=== PATIENT | female | born 1980 | race Caucasian/White ===

== ENCOUNTER 2021-06-17 19:57 | Emergency (ER) | payer MEDICAID ==
[~2021-06-17] VITALS: Ht 160 cm; Wt 90.7 kg
[2021-06-17 20:04] VITALS: BP_SYST 125
--- NOTE | 2021-06-17 20:04 | NUR ---
Patient triaged and placed in waiting room. VSS and patient appears in no acute distress at this time. Accompanied by FAM MEMBER, awaiting available bed, and MD notified of need for MSE.
[2021-06-17 20:26] LABS: BASOPHILS % (AUTO) 0.4 % (0.0-2.0); EOSINOPHILS # (AUTO) 0.2 K/uL (0.0-0.4); HEMATOCRIT 32.7 % (36-48); HEMOGLOBIN 11.1 g/dL (12.0-16.0); LYMPHOCYTES # (AUTO) 1.6 K/uL (1.0-5.5); LYMPHOCYTES % (AUTO) 25.5 % (20.5-51.5); MEAN CORPUSCULAR HEMOGLOBIN 31 pg (27-31); MEAN CORPUSCULAR HGB CONC 34 % (32-36); MEAN CORPUSCULAR VOLUME 90 fL (79.0-98.0); MONOCYTES # (AUTO) 0.6 K/uL (0.0-1.0); MONOCYTES % (AUTO) 9.4 % (1.7-9.3); NEUTROPHILS # (AUTO) 3.7 K/uL (1.8-7.7); NEUTROPHILS % (AUTO) 60.7 % (40.0-70.0); PLATELET COUNT (AUTO) 206 K/uL (130-430); RED BLOOD CELL COUNT(AUTO) 3.63 MIL/uL (4.2-6.2); RED CELL DISTRIBUTION WIDTH 13.3 % (9.0-15.0); WHITE BLOOD COUNT (AUTO) 6.1 K/uL (4.8-10.8)
[2021-06-17 20:44] LABS: CALCIUM 8.9 mg/dL (8.4-11.0); CREATININE 1.04 mg/dL (0.55-1.30); POTASSIUM 3.5 mmol/L (3.5-5.1)
[2021-06-17 20:54] LABS: ALBUMIN 3.1 g/dL (3.4-4.8); TOTAL BILIRUBIN 0.2 mg/dL (0.0-1.0)
[2021-06-17 21:22] LABS: BILIRUBIN,URINE NEGATIVE (NEGATIVE); BLOOD, URINE 2+ (NEGATIVE); CLARITY/URINE SL CLOUDY (CLEAR); COLOR,URINE YELLOW (YELLOW); GLUCOSE,URINE NEGATIVE (NEGATIVE); KETONES,URINE TRACE (NEGATIVE); LEUKOCYTE ESTERASE ,URINE 2+ (NEGATIVE); NITRITE, URINE POSITIVE (NEGATIVE); PH,URINE 6.5 (5.0-8.0); PROTEIN URINE 1+ (NEGATIVE); UROBILINOGEN,URINE 0.2 (0.2-1.0)
[2021-06-17 21:37] LABS: BACTERIA,URINE MODERATE /HPF (None Seen); CALCIUM OXALATE CRYSTALS,UR None Seen /HPF (None Seen); CALCIUM PHOSPHATE CRYSTALS,UR None Seen /HPF (None Seen); COARSE GRANULAR CASTS,URINE None Seen /LPF (None Seen); FINE GRANULAR CASTS,URINE None Seen /LPF (None Seen); HYALINE CASTS, URINE None Seen /LPF (None Seen); MUCUS,URINE None Seen /LPF (None Seen); OTHER CASTS, URINE None Seen /LPF (None Seen); OTHER CRYSTALS,URINE None Seen /HPF (None Seen); RBC,URINE 0-3 /HPF (0-3); TRICHOMONAS,URINE None Seen /HPF (None Seen); TRIPLE PHOSPHATE CRYSTAL,UR None Seen /HPF (None Seen); URIC ACID CRYSTALS,URINE None Seen /HPF (None Seen); URINE AMORPHOUS PHOSPHATES None Seen /HPF (None Seen); URINE AMORPHOUS URATE None Seen /HPF (None Seen); WAXY CASTS,URINE None Seen /LPF (None Seen); WBC,URINE >100 /HPF (0-3); YEAST,URINE None Seen /HPF (None Seen)
--- NOTE | 2021-06-17 21:58 | NUR ---
DAYANA Weathers examining patient.
[2021-06-17] MEDS ORDERED: MAG HYDROX/AL HYDROX/SIMETH 30 ML, DICYCLOMINE HCL 20 MG, LIDOCAINE VISCOUS 2% 15ML (PO... PO ONE ×3 (22:15)
--- NOTE | 2021-06-17 22:35 | NUR ---
Seen and examined by Dr. Gamboa
[2021-06-17] MEDS ORDERED: CIPR500T5 PO (22:56)
[2021-06-17] MEDS ORDERED: ONDA4TAB5 PO (22:56)
[2021-06-17] MEDS ORDERED: HYDR-3917 PO (22:56)
[2021-06-17] MEDS ORDERED: KETOROLAC TROMETHAMINE 60 MG/2 ML VIAL IM ONE ×2 (23:42→23:45)
--- NOTE | 2021-06-17 23:45 | NUR ---
Medications given as ordered, haelth teaching provided and verbalized understanding. all medication entered manually, no available scanner in waiting area
[2021-06-17 23:47] VITALS: BP_SYST 125
--- NOTE | 2021-06-17 23:47 | NUR ---
Patient given written and verbal discharge instructions and verbalizes understanding. ER MD discussed with patient the results and treatment provided. Patient in stable condition. ID arm band removed. Rx of norco, zofran, ciprofloxacin given. Patient educated on pain management and to follow up with PMD. Pain Scale 3/10. Opportunity for questions provided and answered. Medication side effect fact sheet provided.
== END 2021-06-17 23:47 | disposition home or self-care (01) ==
LOC: SED 19:57
DX: N39.0 Urinary tract infection, site not specified (principal); R11.2 Nausea with vomiting, unspecified; K21.9 Gastro-esophageal reflux disease without esophagitis
CPT/HCPCS: 36415; 80053; 81000; 81025; 83690; 85025; 87086; 96372; 99283; J1885; J2001

== ENCOUNTER 2021-10-10 15:05 | Emergency (ER) | payer MEDICAID ==
[~2021-10-10] VITALS: Ht 160 cm; Wt 89.8 kg
[~2021-10-10 15:05] MED LIST: CIPR500T5 PO; HYDR-3917 PO; ONDA4TAB5 PO
[2021-10-10 15:17] VITALS: BP_SYST 117
--- NOTE | 2021-10-10 15:20 | NUR ---
Patient to ER bed 03 to gown for evaluation. Side rails up.
--- NOTE | 2021-10-10 15:40 | NUR ---
ER at bedside examining patient.
--- NOTE | 2021-10-10 15:50 | NUR ---
patient came with cc of left sided abdominal pain with nausea started this morning. denies nausea at this time. hx of gerd 2 months ago and taking protonix 40mg prn.vital sign stable. afebrile. no s/s of distress.
[2021-10-10] MEDS ORDERED: MAG HYDROX/AL HYDROX/SIMETH 30 ML, DICYCLOMINE HCL 20 MG, LIDOCAINE VISCOUS 2% 15ML (PO... PO ONE ×3 (16:00)
--- NOTE | 2021-10-10 16:20 | NUR ---
abdominal ultrasound ongoing at the bedside.
[2021-10-10] MEDS ORDERED: NACL 0.9% 1,000 ML IV ONE (16:45)
[2021-10-10] MEDS ORDERED: ONDANSETRON HCL 4 MG/2 ML VIAL IVP ONE (16:45)
[2021-10-10] MEDS ORDERED: PANTOPRAZOLE SODIUM 40 MG/VIAL (PROTONIX) IVP ONE (16:45)
[2021-10-10 17:01] LABS: BASOPHILS % (AUTO) 0.4 % (0.0-2.0); EOSINOPHILS # (AUTO) 0.1 K/uL (0.0-0.4); HEMATOCRIT 37.2 % (36-48); HEMOGLOBIN 12.5 g/dL (12.0-16.0); LYMPHOCYTES % (AUTO) 17.8 % (20.5-51.5); MEAN CORPUSCULAR HEMOGLOBIN 30 pg (27-31); MEAN CORPUSCULAR HGB CONC 34 % (32-36); MEAN CORPUSCULAR VOLUME 89 fL (79.0-98.0); MONOCYTES # (AUTO) 0.4 K/uL (0.0-1.0); NEUTROPHILS % (AUTO) 73.8 % (40.0-70.0); PLATELET COUNT (AUTO) 229 K/uL (130-430); RED BLOOD CELL COUNT(AUTO) 4.19 MIL/uL (4.2-6.2); RED CELL DISTRIBUTION WIDTH 12.9 % (9.0-15.0); WHITE BLOOD COUNT (AUTO) 5.4 K/uL (4.8-10.8)
[2021-10-10 17:13] LABS: CALCIUM 8.8 mg/dL (8.4-11.0); CREATININE 0.89 mg/dL (0.55-1.30)
[2021-10-10 17:23] LABS: ALBUMIN 3.5 g/dL (3.4-4.8); TOTAL BILIRUBIN 0.3 mg/dL (0.0-1.0)
[2021-10-10 17:58] LABS: BILIRUBIN,URINE NEGATIVE (NEGATIVE); CLARITY/URINE CLOUDY (CLEAR); COLOR,URINE YELLOW (YELLOW); GLUCOSE,URINE NEGATIVE (NEGATIVE); KETONES,URINE NEGATIVE (NEGATIVE); PROTEIN URINE 2+ (NEGATIVE)
[2021-10-10 17:59] LABS: BLOOD, URINE 3+ (NEGATIVE); LEUKOCYTE ESTERASE ,URINE 2+ (NEGATIVE); NITRITE, URINE POSITIVE (NEGATIVE); UROBILINOGEN,URINE 0.2 (0.2-1.0)
[2021-10-10 18:19] LABS: WBC,URINE 20-50 /HPF (0-3)
[2021-10-10 18:20] LABS: BACTERIA,URINE MANY /HPF (None Seen); MUCUS,URINE None Seen /LPF (None Seen)
--- NOTE | 2021-10-10 18:37 | NUR ---
Patient transported to radiology via gurney, accompanied by Klevosti for CT of abdomen.
[2021-10-10] MEDS ORDERED: fentaNYL CITRATE/PF 100 MCG/2 ML AMP IVP ONE (19:00)
--- NOTE | 2021-10-10 19:17 | NUR ---
ASSUMED CARE OF PT FROM ER NURSE ROSALES
[2021-10-10] MEDS ORDERED: cefTRIAXone 1 GM VIAL ONE (19:26)
[2021-10-10] MEDS ORDERED: cefTRIAXone 1 GM in D5W 50 ML IV ONE (19:30)
[2021-10-10] MEDS ORDERED: OMEP40CA20 PO (19:57)
[2021-10-10] MEDS ORDERED: ONDA-8 TL (19:57)
[2021-10-10] MEDS ORDERED: HYDR-3917 PO (19:57)
[2021-10-10] MEDS ORDERED: CEPH-548 PO (19:57)
[2021-10-10 20:54] VITALS: BP_SYST 134
--- NOTE | 2021-10-10 20:57 | NUR ---
Patient given written and verbal discharge instructions and verbalizes understanding. ER MD discussed with patient the results and treatment provided. Patient in stable condition. ID arm band removed. IV catheter removed intact and dressing applied, no active bleeding. Rx of CEPHALEXIN, NORCO, OMEPRAZOLE, ZOFRAN given. Patient educated on pain management and to follow up with PMD. Pain Scale 3/10. Opportunity for questions provided and answered. Medication side effect fact sheet provided.
== END 2021-10-10 20:57 | disposition home or self-care (01) ==
LOC: SED 15:05
DX: K21.9 Gastro-esophageal reflux disease without esophagitis (principal); N23 Unspecified renal colic; Z79.899 Other long term (current) drug therapy
CPT/HCPCS: 36415; 74176; 76376; 76700; 80053; 81000; 81025; 83690; 84703; 85025; 87040; 87086; 96361; 96365; 96375; 99284; C9113; J0696; J2001; J2405; J3010; J7030

== ENCOUNTER 2022-09-12 17:30 | Emergency (ER) | payer MEDICAID ==
[~2022-09-12] VITALS: Ht 162.6 cm; Wt 95.3 kg
[2022-09-12 17:30] VITALS: BP_SYST 150
[~2022-09-12 17:30] MED LIST changes: +CEPH-548 PO; +OMEP40CA20 PO; +ONDA-8 TL
--- NOTE | 2022-09-12 17:30 | NUR ---
Patient triaged and placed in waiting room. VSS and patient appears in no acute distress at this time. Accompanied by SELF, awaiting available bed, and MD notified of need for MSE.
--- NOTE | 2022-09-12 18:30 | NUR ---
ER at bedside examining patient.
[2022-09-12] MEDS ORDERED: MAG-AL HYDROX/SIMETH 30 ML UDC PO ONE (19:00)
[2022-09-12] MEDS ORDERED: FAMOTIDINE 20 MG TABLET PO ONE (19:00)
--- NOTE | 2022-09-12 19:00 | NUR ---
PT BIB FROM HOME. CC ABDOMINAL PAIN, PT AAOX3, DENIES HEADACHE, DENIES SOB. PT IS NAUSEATED WITH NO EPISODES OF VOMITING. PT C/O LOWER QUADRANT PAIN. DENIES DIARRHEA, STATES "GASSY FEELING".
[2022-09-12 19:22] LABS: BASOPHILS % (AUTO) 0.3 % (0.0-2.0); EOSINOPHILS % (AUTO) 0.7 % (0.0-4.0); HEMATOCRIT 39.2 % (36-48); HEMOGLOBIN 13.4 g/dL (12.0-16.0); LYMPHOCYTES # (AUTO) 1.3 K/uL (1.0-5.5); LYMPHOCYTES % (AUTO) 22.4 % (20.5-51.5); MEAN CORPUSCULAR HEMOGLOBIN 31 pg (27-31); MEAN CORPUSCULAR HGB CONC 34 % (32-36); MEAN CORPUSCULAR VOLUME 90 fL (79.0-98.0); MONOCYTES # (AUTO) 0.4 K/uL (0.0-1.0); MONOCYTES % (AUTO) 6.4 % (1.7-9.3); NEUTROPHILS # (AUTO) 4.2 K/uL (1.8-7.7); NEUTROPHILS % (AUTO) 70.2 % (40.0-70.0); PLATELET COUNT (AUTO) 216 K/uL (130-430); RED BLOOD CELL COUNT(AUTO) 4.35 MIL/uL (4.2-6.2); RED CELL DISTRIBUTION WIDTH 13.4 % (9.0-15.0)
[2022-09-12 19:31] LABS: CALCIUM 9.3 mg/dL (8.4-11.0); CREATININE 1.02 mg/dL (0.55-1.30)
[2022-09-12 19:37] LABS: ALBUMIN 3.9 g/dL (3.4-4.8); TOTAL BILIRUBIN 0.3 mg/dL (0.0-1.0)
[2022-09-12 20:12] LABS: BILIRUBIN,URINE NEGATIVE (NEGATIVE); BLOOD, URINE NEGATIVE (NEGATIVE); CLARITY/URINE CLEAR (CLEAR); COLOR,URINE YELLOW (YELLOW); GLUCOSE,URINE NEGATIVE (NEGATIVE); KETONES,URINE NEGATIVE (NEGATIVE); LEUKOCYTE ESTERASE ,URINE 1+ (NEGATIVE); NITRITE, URINE NEGATIVE (NEGATIVE); PH,URINE 6.5 (5.0-8.0); PROTEIN URINE NEGATIVE (NEGATIVE); UROBILINOGEN,URINE 0.2 (0.2-1.0)
[2022-09-12 20:41] LABS: BACTERIA,URINE FEW /HPF (None Seen); RBC,URINE NONE SEEN /HPF (0-3)
[2022-09-12] MEDS ORDERED: MAG-AL HYDROX/SIMETH 30 ML UDC ONE (21:53)
[2022-09-12] MEDS ORDERED: FAMOTIDINE 20 MG TABLET ONE (21:53)
[2022-09-12 22:24] LABS: HCG,QUAL RESULT NEGATIVE (NEGATIVE)
[2022-09-12] MEDS ORDERED: ONDA-8 TL (22:30)
[2022-09-12] MEDS ORDERED: SUCR1TAB2 PO (22:30)
[2022-09-12] MEDS ORDERED: FAMO20TA8 PO (22:30)
[2022-09-12] MEDS ORDERED: CEPH-548 PO (22:37)
[2022-09-12 22:43] VITALS: BP_SYST 136
--- NOTE | 2022-09-12 22:46 | NUR ---
Patient given written and verbal discharge instructions and verbalizes understanding. ER MD discussed with patient the results and treatment provided. Patient in stable condition. ID arm band removed. IV catheter removed intact and dressing applied, no active bleeding. Rx of ZOFRAN AND ABX given. Patient educated on pain management and to follow up with PMD. Opportunity for questions provided and answered. Medication side effect fact sheet provided.
== END 2022-09-12 22:43 | disposition home or self-care (01) ==
LOC: SED 17:30
DX: N30.00 Acute cystitis without hematuria (principal); R10.13 Epigastric pain; R11.0 Nausea; K21.9 Gastro-esophageal reflux disease without esophagitis; Z79.899 Other long term (current) drug therapy
CPT/HCPCS: 36415; 80053; 81000; 83690; 84703; 85025; 87086; 99283

== ENCOUNTER 2023-02-19 19:59 | Emergency (ER) | payer MEDICAID ==
[~2023-02-19] VITALS: Ht 162.6 cm; Wt 86.6 kg
[~2023-02-19 19:59] MED LIST changes: +FAMO20TA8 PO; +SUCR1TAB2 PO
[2023-02-19 20:12] VITALS: BP_SYST 127
--- NOTE | 2023-02-19 21:02 | NUR ---
Pt brought by self, A&Ox4, pt presents to ER with epigastric pain radiating to R upper abdomen, skin pink and warm, cap refill <3, VSS, respirations even and unlabored, cap refill <3,
--- NOTE | 2023-02-19 21:36 | NUR ---
Patient arrived to ED H1 for c/o right flank pain and back pain. Patient said she had stone lodged in left kidney. Mid-abdominal pain radiating to back. Patient was at [facility] on 02/10 and was taking medications omeprazole. 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 One stone lodged in kidney. Patient rates 7/10 pain. Patient says, "nothing works." Will continue to monitor.
[2023-02-19 21:42] LABS: BASOPHILS % (AUTO) 0.6 % (0.0-2.0); EOSINOPHILS # (AUTO) 0.2 K/uL (0.0-0.4); EOSINOPHILS % (AUTO) 2.2 % (0.0-4.0); HEMATOCRIT 40.7 % (36-48); HEMOGLOBIN 13.6 g/dL (12.0-16.0); LYMPHOCYTES # (AUTO) 1.9 K/uL (1.0-5.5); LYMPHOCYTES % (AUTO) 26.8 % (20.5-51.5); MEAN CORPUSCULAR HEMOGLOBIN 31 pg (27-31); MEAN CORPUSCULAR HGB CONC 34 % (32-36); MEAN CORPUSCULAR VOLUME 93 fL (79.0-98.0); MONOCYTES # (AUTO) 0.5 K/uL (0.0-1.0); MONOCYTES % (AUTO) 6.8 % (1.7-9.3); NEUTROPHILS # (AUTO) 4.5 K/uL (1.8-7.7); NEUTROPHILS % (AUTO) 63.6 % (40.0-70.0); PLATELET COUNT (AUTO) 199 K/uL (130-430); RED BLOOD CELL COUNT(AUTO) 4.37 MIL/uL (4.2-6.2); RED CELL DISTRIBUTION WIDTH 12.8 % (9.0-15.0); WHITE BLOOD COUNT (AUTO) 7.1 K/uL (4.8-10.8)
[2023-02-19 21:45] LABS: BILIRUBIN,URINE NEGATIVE (NEGATIVE); BLOOD, URINE 1+ (NEGATIVE); COLOR,URINE YELLOW (YELLOW); GLUCOSE,URINE NEGATIVE (NEGATIVE); KETONES,URINE NEGATIVE (NEGATIVE); LEUKOCYTE ESTERASE ,URINE 2+ (NEGATIVE); NITRITE, URINE NEGATIVE (NEGATIVE); PROTEIN URINE NEGATIVE (NEGATIVE); UROBILINOGEN,URINE 0.2 (0.2-1.0)
[2023-02-19 21:47] LABS: CLARITY/URINE SLIGHTLY HAZY (CLEAR)
[2023-02-19 21:50] LABS: CALCIUM 8.5 mg/dL (8.4-11.0); CREATININE 0.94 mg/dL (0.55-1.30)
[2023-02-19 21:54] LABS: ALBUMIN 3.5 g/dL (3.4-4.8); TOTAL BILIRUBIN 0.3 mg/dL (0.0-1.0)
[2023-02-19 22:03] LABS: BACTERIA,URINE MODERATE /HPF (None Seen); WBC,URINE 20-50 /HPF (0-3)
[2023-02-19 22:04] LABS: HYALINE CASTS, URINE 0-10 /LPF (None Seen)
--- NOTE | 2023-02-19 22:26 | NUR ---
Patient moved from hallway to ed room 8.
[2023-02-20] MEDS ORDERED: PANTOPRAZOLE SODIUM 40 MG/VIAL (PROTONIX) IVP ONE (00:45)
[2023-02-20] MEDS ORDERED: PROCHLORPERAZINE EDISYLATE 10 MG/2 ML VIAL IVP ONE (00:45)
[2023-02-20] MEDS ORDERED: MORPHINE 4 MG INJ. 4 MG/ML VIAL IVP ONE (00:45)
[2023-02-20] MEDS ORDERED: NACL 0.9% 1,000 ML IV ONE (00:45)
[2023-02-20] MEDS ORDERED: PHE25 PO (01:52)
[2023-02-20] MEDS ORDERED: CIPR500T5 PO (01:52)
[2023-02-20] MEDS ORDERED: HYDR-3917 PO (01:52)
[2023-02-20 01:53] VITALS: BP_SYST 136
--- NOTE | 2023-02-20 01:55 | NUR ---
Patient given written and verbal discharge instructions and verbalizes understanding. ER MD discussed with patient the results and treatment provided. Patient in stable condition. ID arm band removed. IV catheter removed intact and dressing applied, no active bleeding. Rx of medications given. Patient educated on pain management and to follow up with PMD. Opportunity for questions provided and answered. Medication side effect fact sheet provided.
== END 2023-02-20 02:01 | disposition home or self-care (01) ==
LOC: SED 19:59
DX: N39.0 Urinary tract infection, site not specified (principal); R10.13 Epigastric pain; R11.0 Nausea; K21.9 Gastro-esophageal reflux disease without esophagitis; Z79.899 Other long term (current) drug therapy
CPT/HCPCS: 99284; 80053; 81000; 83690; 85025; 87086; 36415; 81025; 96374; 96375; 96361; C9113; J0780; J2270; J7030

== ENCOUNTER 2023-06-01 11:58 | Emergency (ER) | payer MEDICAID ==
[~2023-06-01] VITALS: Ht 162.6 cm; Wt 87.5 kg
[~2023-06-01 11:58] MED LIST changes: +PHE25 PO
[2023-06-01 12:06] VITALS: BP_SYST 135; PULSE 76; RESP 18; TEMP 98.3; O2SAT 99
[2023-06-01 12:41] LABS: BASOPHILS % (AUTO) 0.6 % (0.0-2.0); EOSINOPHILS # (AUTO) 0.1 K/uL (0.0-0.4); EOSINOPHILS % (AUTO) 1.7 % (0.0-4.0); HEMATOCRIT 38.5 % (36-48); HEMOGLOBIN 12.6 g/dL (12.0-16.0); LYMPHOCYTES # (AUTO) 1.1 K/uL (1.0-5.5); LYMPHOCYTES % (AUTO) 22.6 % (20.5-51.5); MEAN CORPUSCULAR HEMOGLOBIN 30 pg (27-31); MEAN CORPUSCULAR HGB CONC 33 % (32-36); MEAN CORPUSCULAR VOLUME 92 fL (79.0-98.0); MONOCYTES # (AUTO) 0.3 K/uL (0.0-1.0); MONOCYTES % (AUTO) 5.9 % (1.7-9.3); NEUTROPHILS # (AUTO) 3.2 K/uL (1.8-7.7); NEUTROPHILS % (AUTO) 69.2 % (40.0-70.0); PLATELET COUNT (AUTO) 192 K/uL (130-430); RED BLOOD CELL COUNT(AUTO) 4.17 MIL/uL (4.2-6.2); RED CELL DISTRIBUTION WIDTH 13.3 % (9.0-15.0); WHITE BLOOD COUNT (AUTO) 4.7 K/uL (4.8-10.8)
[2023-06-01 12:57] LABS: ALBUMIN 3.6 g/dL (3.4-4.8); CALCIUM 8.7 mg/dL (8.4-11.0); CREATININE 0.93 mg/dL (0.55-1.30); TOTAL BILIRUBIN 0.5 mg/dL (0.0-1.0)
[2023-06-01 13:38] LABS: BILIRUBIN,URINE NEGATIVE (NEGATIVE); BLOOD, URINE 2+ (NEGATIVE); CLARITY/URINE CLEAR (CLEAR); COLOR,URINE YELLOW (YELLOW); GLUCOSE,URINE NEGATIVE (NEGATIVE); KETONES,URINE NEGATIVE (NEGATIVE); LEUKOCYTE ESTERASE ,URINE TRACE (NEGATIVE); NITRITE, URINE NEGATIVE (NEGATIVE); PROTEIN URINE NEGATIVE (NEGATIVE); UROBILINOGEN,URINE 0.2 (0.2-1.0)
[2023-06-01 13:57] LABS: BACTERIA,URINE FEW /HPF (None Seen); MUCUS,URINE 1+ /LPF (None Seen)
[2023-06-01] MEDS ORDERED: HYDR-3927 PO (14:19)
== END 2023-06-01 14:33 | disposition home or self-care (01) ==
LOC: SED 11:58
DX: R10.9 Unspecified abdominal pain (principal); K21.9 Gastro-esophageal reflux disease without esophagitis; Z88.1 Allergy status to other antibiotic agents; Z88.8 Allergy status to other drugs, medicaments and biological substances; Z79.899 Other long term (current) drug therapy
CPT/HCPCS: 36415; 80053; 81000; 85025; 87086; 99283

== ENCOUNTER 2024-03-15 10:55 | Emergency (ER) | payer MEDICAID ==
[~2024-03-15] VITALS: Ht 162.6 cm; Wt 93.0 kg
[~2024-03-15 10:55] MED LIST changes: +HYDR-3927 PO
[2024-03-15 10:59] VITALS: BP_SYST 123; PULSE 84; RESP 18; TEMP 97.8; O2SAT 97
[2024-03-15] MEDS ORDERED: CETI1TAB2 PO (11:25)
[2024-03-15] MEDS ORDERED: TRAM50TA2 PO (11:25)
[2024-03-15 11:44] VITALS: BP_SYST 123; PULSE 84; RESP 18; TEMP 97.8; O2SAT 97
== END 2024-03-15 11:46 | disposition home or self-care (01) ==
LOC: SED 10:55
DX: H11.31 Conjunctival hemorrhage, right eye (principal); R51.9 Headache, unspecified; K21.9 Gastro-esophageal reflux disease without esophagitis; Z88.1 Allergy status to other antibiotic agents; Z79.899 Other long term (current) drug therapy; Z79.2 Long term (current) use of antibiotics
CPT/HCPCS: 99283

== ENCOUNTER 2024-07-16 13:05 | Emergency (ER) | payer MEDICAID ==
[~2024-07-16] VITALS: Ht 160 cm; Wt 92.1 kg
[~2024-07-16 13:05] MED LIST changes: +CETI1TAB2 PO; +TRAM50TA2 PO
[2024-07-16 13:11] VITALS: BP_SYST 129; PULSE 112; RESP 17; TEMP 97.1; O2SAT 99
[2024-07-16 14:19] LABS: BILIRUBIN,URINE NEGATIVE (NEGATIVE); BLOOD, URINE NEGATIVE (NEGATIVE); CLARITY/URINE CLEAR (CLEAR); COLOR,URINE YELLOW (YELLOW); GLUCOSE,URINE NEGATIVE (NEGATIVE); KETONES,URINE NEGATIVE (NEGATIVE); LEUKOCYTE ESTERASE ,URINE NEGATIVE (NEGATIVE); NITRITE, URINE NEGATIVE (NEGATIVE); PROTEIN URINE NEGATIVE (NEGATIVE); UROBILINOGEN,URINE 0.2 (0.2-1.0)
[2024-07-16 14:29] LABS: BASOPHILS % (AUTO) 0.3 % (0.0-2.0); EOSINOPHILS # (AUTO) 0.1 K/uL (0.0-0.4); EOSINOPHILS % (AUTO) 1.1 % (0.0-4.0); HEMOGLOBIN 12.8 g/dL (12.0-16.0); LYMPHOCYTES # (AUTO) 0.7 K/uL (1.0-5.5); LYMPHOCYTES % (AUTO) 8.8 % (20.5-51.5); MEAN CORPUSCULAR HEMOGLOBIN 32 pg (27-31); MEAN CORPUSCULAR HGB CONC 35 % (32-36); MEAN CORPUSCULAR VOLUME 93 fL (79.0-98.0); MONOCYTES # (AUTO) 0.6 K/uL (0.0-1.0); MONOCYTES % (AUTO) 8.3 % (1.7-9.3); NEUTROPHILS # (AUTO) 6.1 K/uL (1.8-7.7); NEUTROPHILS % (AUTO) 81.5 % (40.0-70.0); PLATELET COUNT (AUTO) 173 K/uL (130-430); RED BLOOD CELL COUNT(AUTO) 3.99 MIL/uL (4.2-6.2); RED CELL DISTRIBUTION WIDTH 12.9 % (9.0-15.0); WHITE BLOOD COUNT (AUTO) 7.5 K/uL (4.8-10.8)
[2024-07-16 14:38] LABS: SERUM HCG (QUALITATIVE) NEGATIVE (NEGATIVE)
[2024-07-16 14:39] LABS: INR 0.9 (0.8-1.2); PROTHROMBIN TIME 10.2 SECS (9.5-12.5)
[2024-07-16 15:12] LABS: ALANINE AMINOTRANSFERASE 12 U/L (12-78); ALBUMIN 3.1 g/dL (3.4-4.8); AMYLASE 77 U/L (0-100); ANION GAP 8 (5-15); ASPARTATE AMINOTRANSFERASE 14 U/L (10-37); BILIRUBIN,DIRECT 0.1 mg/dL (0.0-0.3); CALCIUM 8.6 mg/dL (8.4-11.0); CARBON DIOXIDE 25 mmol/L (23-29); CHLORIDE 106 mmol/L (98-107); CREATININE 1.03 mg/dL (0.55-1.30); GFR AFRICAN AMERICAN 76 mL/min (>90); GLUCOSE 105 mg/dL (74-106); LIPASE 81 U/L (16-77); POTASSIUM 3.9 mmol/L (3.5-5.1); SODIUM SERUM 139 mmol/L (136-145); TOTAL BILIRUBIN 0.3 mg/dL (0.0-1.0); TOTAL PROTEIN, SERUM 6.6 g/dL (6.4-8.3); UREA NITROGEN, BLOOD 11 mg/dL (8-21)
[2024-07-16 15:13] LABS: GFR NON AFRICAN-AMERICAN 62 mL/min (>90)
[2024-07-16 15:14] LABS: ACETONE, SERUM NEGATIVE (NEGATIVE)
[2024-07-16] MEDS ORDERED: IBUP-1969 PO (16:39)
[2024-07-16 17:52] VITALS: BP_SYST 114; PULSE 88; RESP 20; TEMP 97.8; O2SAT 96
== END 2024-07-16 17:53 | disposition home or self-care (01) ==
LOC: SED 13:05
DX: R10.9 Unspecified abdominal pain (principal); R19.7 Diarrhea, unspecified; K21.9 Gastro-esophageal reflux disease without esophagitis; Z88.1 Allergy status to other antibiotic agents; Z88.5 Allergy status to narcotic agent
CPT/HCPCS: 36415; 80048; 80076; 81001; 81003; 81025; 82009; 82150; 83605; 83690; 84703; 85025; 85610; 85730; 99284